=== PATIENT | female | born 1990 | race Asian ===

== ENCOUNTER → 2016-09-17 | Outpatient (CLI) | payer OTHER ==
[~2016-09-17] MED LIST: ACET50TA PO; GASTROGRAFIN SOLUTION 30ML (Q9963) As Ordered ONE; IBUP-1114 PO; ISOVUE-370 76% 100ML VIAL (Q9967) As Ordered ONE
--- NOTE | 2016-09-17 13:09 | REP ---
CT CHEST WITH IV CONTRAST: CT chest performed with the intravenous administration of 100 mL of Isovue-370. Sagittal and coronal reconstruction images are performed. The lungs are free of infiltrate with no parenchymal abnormality. There is no evidence of mediastinal, hilar, or chest wall lymphadenopathy. There is no pleural or pericardial effusion. Heart is normal in size. Thoracic aorta is normal in size with no aneurysm. There is a 9 mm nonspecific nodule in the left lobe of the thyroid. IMPRESSION: Essentially negative CT of the chest with IV contrast. There is a 9 mm nodule in the left lobe of the thyroid which could be evaluated with ultrasound. Signed by Varinder Arrington MD 09/17/2016 08:32 P
--- NOTE | 2016-09-20 10:33 | REP ---
CT ABDOMEN AND PELVIS WITH IV CONTRAST, CT ABDOMEN WITHOUT IV CONTRAST: TECHNIQUE: Axial noncontrast images through the abdomen followed by contrast-enhanced images through the abdomen and pelvis using 100 mL Isovue 370 intravenous contrast material, with coronal and sagittal reformations. The liver, spleen, adrenals, pancreas, and kidneys are normal in appearance. There is no evidence of significant lymphadenopathy in the abdomen or pelvis. There is no abdominal aortic aneurysm. There is no free air or free fluid. There is no bowel wall thickening. There is no evidence of appendicitis. There is no evidence of a pelvic mass. The urinary bladder appears unremarkable. There is no anterior abdominal wall defect. IMPRESSION: Negative CT abdomen and pelvis. Signed by Varinder Arrington MD 09/20/2016 04:14 P
== END ==
LOC: M RAD 09:47
PROVIDERS: ATTEND Nurse Practitioner Family
DX: R63.4 Abnormal weight loss (principal)